=== PATIENT | female | born 1945 | race Caucasian/White ===

== ENCOUNTER → 2018-12-06 17:54 | Outpatient (REF) | payer OTHER, SELFPAY ==
[2018-12-06 18:47] LABS: Add Manual Diff / Slide Review NO; Basophils Absolute Auto 200 /uL (0-100); Eosinophils Absolute Auto 300 /uL (0-450); Eosinophils Percent Auto 3.1 % (2-4); Hematocrit 44.5 % (36-46); Hemoglobin 14.1 g/dL (12.0-16.0); Lymphocytes Absolute Auto 1500 /uL (1100-4500); Mean Corpuscular HGB Conc 31.7 % (30-36); Mean Corpuscular Hemoglobin 27.8 PG (26-34); Mean Corpuscular Volume 87.6 fL (80-100); Monocytes Absolute Auto 500 /uL (0-900); Monocytes Percent Auto 5.8 % (3-14); Neutrophils Absolute Auto 6200 /uL (1500-7000); Neutrophils Percent Auto 72.1 % (50-75); Platelet Count 475 X10^3/uL (150-400); Red Blood Cell Count 5.08 X10^6/uL (4.0-5.2); White Blood Cell Count 8.6 X10^3/uL (4.5-11.0)
[2018-12-06 18:51] LABS: Alanine Aminotransferase 51 IU/L (9-52); Albumin 4.1 g/dL (3.5-5.0); Albumin Globulin Ratio 1.4 (1.0-2.8); Alkaline Phosphatase 109 U/L (38-126); Amylase 87 U/L (30-110); Aspartate Aminotransferase 25 IU/L (14-36); Bilirubin Total 0.5 mg/dL (0.2-1.3); Blood Urea Nitrogen 18 mg/dL (7-17); Calcium 9.5 mg/dL (8.4-10.2); Carbon Dioxide 31 mmol/L (22-32); Chloride 98 mmol/L (98-107); Estimated Glomerular Filt Rate 33.9 mL/min (>60); Glucose 141 mg/dL (80-110); HEMOLYSIS < 15 (0-50); Lipase 270 U/L (23-300); Potassium 3.9 mmol/L (3.4-5.1); Sodium 141 mmol/L (137-145); Total Protein 7.1 g/dL (6.3-8.2)
[2018-12-06 19:20] LABS: Thyroid Stimulating Hormone 0.81 uIU/mL (0.47-4.68)
[2018-12-06 19:29] LABS: Erythrocyte Sedimentation Rate 15 MM/HR (0-20)
== END ==
LOC: LAB 17:54
PROVIDERS: Family Provider Internal Medicine; PCP Family Medicine Geriatric Medicine; Visit Provider Family Medicine Geriatric Medicine
DX: I10 Essential (primary) hypertension (principal); N19 Unspecified kidney failure; Z13.29 Encounter for screening for other suspected endocrine disorder
CPT/HCPCS: 36415; 80053; 82150; 83690; 84443; 85025; 85651

== ENCOUNTER → 2020-03-05 13:38 | Outpatient (CLI) | payer MEDICARE, SELFPAY ==
--- NOTE | 2020-03-05 | DI.MRI.S_ITS ---
PROCEDURE: MR LUMBAR SPINE WO CON INDICATIONS: Radiculopathy, lumbar region TECHNIQUE: Noncontrast sagittal T1 spin echo and T2 fast echo, sagittal STIR, axial T1 and T2 fast spin echo through the lumbar spine. In cases with scoliosis, additional coronal T2 fast spin echo may be performed. COMPARISON: [facility], MR, L-SPINE WITHOUT CONTRAST, 08/11/2017, 12:05. FINDINGS: Image quality: Excellent. Alignment and Curvature: Grade 1 retrolisthesis of L1 on L2 and L2 and L3. Grade 1 anterolisthesis of L4 on L5. Grade 1 retrolisthesis of L3 on L4 and L5 on S1. Bone Marrow: Signal changes in both sacroiliac, most suspicious for insufficiency fractures of technical age indeterminate Multilevel degenerative endplate sclerosis and spurring. Diffuse facet arthropathy. Spinal Cord: Conus medullaris terminates at the L1-L2 and level. Visualized cord demonstrates normal signal and size. Paraspinous Soft Tissues: Grossly unchanged appearance of presumed left renal cysts. L1-L2: Large protrusion and right paracentral extrusion with inferior extension of disc material to the level of the mid L2 vertebral body. Severe canal stenosis is present. Near complete effacement of both lateral recesses . Moderate bilateral foraminal stenoses with slight intervertebral and on both sides, grossly unchanged L2-L3: Dorsal epidural lipomatosis. Broad-based posterior disc protrusion. Mild/moderate canal narrowing. Partial effacement of both lateral recesses with bilaterally symmetric appearance. Mild right foraminal narrowing. Moderate left foraminal stenosis with borderline or root compression. L3-L4: Mild canal narrowing. Partial effacement of both lateral recesses with bilaterally symmetric appearance. Severe bilateral foraminal stenoses, with nerve root compression and progressed on both sides since the prior study L4-L5: Mild canal narrowing. Partial effacement of both lateral recesses with bilaterally symmetric appearance. Severe left foraminal stenosis with nerve root compression. Moderate right foraminal narrowing with slight nerve root compression. L5-S1: Mild canal narrowing. Partial effacement of both lateral recesses with asymmetric appearance, right greater than left. Severe right foraminal stenosis with nerve root compression. Moderate left foraminal narrowing with slight nerve root compression. IMPRESSION: Bilateral sacral alar signal changes compatible with sacral insufficiency fractures although technically age-indeterminate. Please correlate clinically Multilevel spondylosis and facet disease, with numerous bilateral foraminal stenoses as detailed above. Severe L1-L2 canal stenosis with chronic disc protrusion, and interval superimposed right paramedian extrusion as above Multilevel spondylolisthesis as above. Dictated by: Jhonatan De León M.D. on 03/05/2020 at 16:08 Approved by: Jhonatan De León M.D. on 03/05/2020 at 16:49
== END ==
PROVIDERS: Family Provider Internal Medicine; PCP Family Medicine Geriatric Medicine; Referring Provider Orthopaedic Surgery; Visit Provider Orthopaedic Surgery
DX: M51.16 Intervertebral disc disorders with radiculopathy, lumbar region (principal); M47.26 Other spondylosis with radiculopathy, lumbar region; M48.061 Spinal stenosis, lumbar region without neurogenic claudication; M48.07 Spinal stenosis, lumbosacral region; M43.16 Spondylolisthesis, lumbar region
CPT/HCPCS: 72148

== ENCOUNTER → 2021-04-10 13:03 | Outpatient (CLI) | payer MEDICARE, SELFPAY ==
--- NOTE | 2021-04-10 13:07 | DI.MRI.S_ITS ---
PROCEDURE: MR THORACIC SPINE WO CON INDICATIONS: Pain in thoracic spine TECHNIQUE: Noncontrast sagittal T1 spine echo and T2 fast spin echo, sagittal STIR, axial T1 and T2 fast spin echo through the thoracic spine. COMPARISON: None. FINDINGS: Image quality: Diagnostic, with note made of motion artifact. Alignment and Curvature: Accentuated thoracic kyphosis is seen. Bone Marrow: Marrow is of normal overall signal. Numerous anterior wedge deformities can be seen throughout the mid thoracic spine. There is a increased STIR signal seen within the T9 and T10 vertebral bodies, with correspondingly dark signal on T1 weighted imaging.22 at T9, there is approximately 70% loss of height centrally. At T10, there is 30% loss of height anteriorly. At the inferior aspect of T9, there is 2-3 mm posterior displacement of fracture fragments. At T6, there is a chronic appearing anterior wedge deformity, with 70-80% loss of height anteriorly. At T8, there is a chronic appearing anterior wedge deformity seen, also with 70-80% loss of height anteriorly. Spinal Cord: Visualized spinal cord is normal in size and signal. Paraspinous Soft Tissues: No paravertebral masses. A simple appearing 2.5 cm cyst can be seen involving the left kidney. Miscellaneous: At the T9 level, there is moderate central canal narrowing seen, with associated mass effect upon the ventral spinal cord. Several levels of moderate neural foraminal narrowing can be seen within the mid to lower thoracic spine. Milder degenerative changes are seen elsewhere. IMPRESSION: Acute or subacute compression deformities seen involving T9 and T10. At T9, there is 2-3 mm posterior displacement of fracture fragments, with associated moderate central canal narrowing. Please consider interventional radiology consultation for potential vertebroplasty. Chronic appearing compression deformities are seen at T6 and T8. Dictated by: Shady Bray M.D. on 04/10/2021 at 14:23 Approved by: Shady Bray M.D. on 04/10/2021 at 14:28
== END ==
PROVIDERS: Family Provider Internal Medicine; PCP Physician Assistant Medical; Referring Provider Physician Assistant Medical; Visit Provider Physician Assistant Medical
DX: M48.54XA Collapsed vertebra, not elsewhere classified, thoracic region, initial encounter for fracture (principal); M54.6 Pain in thoracic spine; M48.04 Spinal stenosis, thoracic region
CPT/HCPCS: 72146

== ENCOUNTER → 2022-06-04 14:12 | Outpatient (CLI) | payer MEDICARE, SELFPAY ==
--- NOTE | 2022-06-04 14:14 | DI.US.S_ITS ---
PROCEDURE: US ARTERIAL DUPLEX LE BI INDICATIONS: NON PRESSURE CHRONIC ULCER/LOCALIZED EDEMA TECHNIQUE: Color and pulse Doppler interrogation was performed of both lower extremity arterial systems, with image documentation. COMPARISON: None. FINDINGS: Popliteal and runoff vessels not well seen. Right lower extremity: Common femoral artery: 85 cm/sec, with biphasic flow. Deep femoral artery: 54 cm/sec, with biphasic flow. Proximal superficial femoral artery: 134 cm/sec, with biphasic flow. Mid superficial femoral artery: 93 cm/sec, with biphasic flow. Distal superficial femoral artery: 56 cm/sec, with biphasic flow. Popliteal artery: 54 cm/sec, with biphasic flow. Posterior tibial artery: 52 cm/sec, with biphasic flow. Anterior tibial artery/dorsalis pedis: 60 cm/sec, with biphasic flow. Duenas-scale imaging description: 53 mm Alex's cyst. Minimal diffuse plaque Left lower extremity: Common femoral artery: 117 cm/sec, with biphasic flow. Deep femoral artery: 54 cm/sec, with biphasic flow. Proximal superficial femoral artery: 113 cm/sec, with biphasic flow. Mid superficial femoral artery: 88 cm/sec, with biphasic flow. Distal superficial femoral artery: 78 cm/sec, with biphasic flow. Popliteal artery: 53 cm/sec, with biphasic flow. Posterior tibial artery: 23 cm/sec, with biphasic flow. Anterior tibial artery/dorsalis pedis: 55 cm/sec, with biphasic flow. Duenas-scale imaging description: 49 mm Alex's cyst. Minimal plaque. IMPRESSION: 1. Limited examination demonstrating no definite evidence of arterial insufficiency to the bilateral lower extremities. MR angiography runoff evaluation may be helpful for further assessment. 2. Bilateral Alex's cysts. Dictated by: Perlita Aguilera M.D. on 06/06/2022 at 12:35 Approved by: Perlita Aguilera M.D. on 06/06/2022 at 12:38
== END ==
PROVIDERS: Family Provider Internal Medicine; PCP Physician Assistant Medical; Referring Provider Physician Assistant Medical; Visit Provider Physician Assistant Medical
DX: L97.821 Non-pressure chronic ulcer of other part of left lower leg limited to breakdown of skin (principal); R60.0 Localized edema; M71.22 Synovial cyst of popliteal space [Baker], left knee; M71.21 Synovial cyst of popliteal space [Baker], right knee
CPT/HCPCS: 93925

== ENCOUNTER → 2023-01-01 14:26 | Outpatient (CLI) | payer MEDICARE, SELFPAY | PROVIDERS: Family Provider Internal Medicine; PCP Physician Assistant Medical; Referring Provider Physician Assistant Medical; Visit Provider Surgery | DX: I87.2 Venous insufficiency (chronic) (peripheral) (principal); L97.822 Non-pressure chronic ulcer of other part of left lower leg with fat layer exposed; L97.811 Non-pressure chronic ulcer of other part of right lower leg limited to breakdown of skin; R60.0 Localized edema | CPT/HCPCS: 11042; 11045; 87070; 87077; 87147; 87186; 87205; 99204 ==

== ENCOUNTER → 2023-01-06 13:53 | Outpatient (CLI) | payer MEDICARE, SELFPAY | PROVIDERS: Family Provider Internal Medicine; PCP Physician Assistant Medical; Referring Provider Physician Assistant Medical; Visit Provider Surgery | DX: I87.2 Venous insufficiency (chronic) (peripheral) (principal); L97.812 Non-pressure chronic ulcer of other part of right lower leg with fat layer exposed; L97.822 Non-pressure chronic ulcer of other part of left lower leg with fat layer exposed; R60.0 Localized edema | CPT/HCPCS: 11042; 99213 ==

== ENCOUNTER → 2023-01-20 13:59 | Outpatient (CLI) | payer MEDICARE, SELFPAY | PROVIDERS: Family Provider Internal Medicine; PCP Physician Assistant Medical; Referring Provider Physician Assistant Medical; Visit Provider Surgery | DX: I87.2 Venous insufficiency (chronic) (peripheral) (principal); L97.822 Non-pressure chronic ulcer of other part of left lower leg with fat layer exposed; L97.812 Non-pressure chronic ulcer of other part of right lower leg with fat layer exposed; R60.0 Localized edema; M79.604 Pain in right leg; M79.605 Pain in left leg | CPT/HCPCS: 11042 ==

== ENCOUNTER → 2023-02-03 14:15 | Outpatient (CLI) | payer MEDICARE, SELFPAY | PROVIDERS: Family Provider Internal Medicine; PCP Physician Assistant Medical; Referring Provider Physician Assistant Medical; Visit Provider Surgery | DX: I87.2 Venous insufficiency (chronic) (peripheral) (principal); L97.822 Non-pressure chronic ulcer of other part of left lower leg with fat layer exposed; L97.812 Non-pressure chronic ulcer of other part of right lower leg with fat layer exposed; R60.0 Localized edema | CPT/HCPCS: 11042; 99212; 99213 ==

== ENCOUNTER → 2023-02-24 14:53 | Outpatient (CLI) | payer MEDICARE, SELFPAY | PROVIDERS: Family Provider Internal Medicine; PCP Physician Assistant Medical; Referring Provider Physician Assistant Medical; Visit Provider Surgery | DX: I87.2 Venous insufficiency (chronic) (peripheral) (principal); L97.822 Non-pressure chronic ulcer of other part of left lower leg with fat layer exposed; R60.0 Localized edema | CPT/HCPCS: 11042 ==

== ENCOUNTER → 2023-03-10 14:19 | Outpatient (CLI) | payer MEDICARE, SELFPAY | PROVIDERS: Family Provider Internal Medicine; PCP Physician Assistant Medical; Referring Provider Physician Assistant Medical; Visit Provider Surgery | DX: I87.2 Venous insufficiency (chronic) (peripheral) (principal); L97.822 Non-pressure chronic ulcer of other part of left lower leg with fat layer exposed; R60.0 Localized edema | CPT/HCPCS: 97597; 99212; 99213 ==

== ENCOUNTER → 2023-03-31 13:10 | Outpatient (CLI) | payer MEDICARE, SELFPAY | PROVIDERS: Family Provider Internal Medicine; PCP Physician Assistant Medical; Referring Provider Physician Assistant Medical; Visit Provider Surgery | DX: I89.0 Lymphedema, not elsewhere classified (principal); R60.0 Localized edema; L97.822 Non-pressure chronic ulcer of other part of left lower leg with fat layer exposed | CPT/HCPCS: 29581; 99213 ==